=== PATIENT | male | born 1955 | race Caucasian/White ===

== ENCOUNTER 2019-09-10 09:41 | Outpatient (CLI) | payer OTHER, BC, SELFPAY ==
--- NOTE | 2019-09-10 11:00 | NEURO_ITS ---
Patient Number: [id number] Impression: # Complains of right hand numbness and weakness. # Severe right Carpal Tunnel Syndrome. # Right ulnar neuropathy around the elbow with neurogenic changes in 1st DI, APB and ADM. # F-waves are prolonged. # Clinical correlation recommended. Nerve Conduction Studies Anti Sensory Summary Table Stim Site NR Peak (ms) P-T Amp (?V) Site1 Site2 Delta-P (ms) Dist (cm) Hugo (m/s) Right Median Anti Sensory (2-3nd Digit) NO RESPONSE Wrist NR Wrist 2-3nd Digit 14.0 Wrist 8.5 16.6 Wrist 2-3nd Digit 14.0 Right Radial Anti Sensory (Base 1st Digit) Wrist 2.9 6.3 Wrist Base 1st Digit 2.9 0.0 Right Ulnar Anti Sensory (5th Digit) Wrist 4.8 27.9 Wrist 5th Digit 4.8 14.0 29 Motor Summary Table Stim Site NR Onset (ms) O-P Amp (mV) Site1 Site2 Delta-0 (ms) Dist (cm) Hugo (m/s) Right Median Motor (Abd Poll Brev) Wrist 8.0 3.4 Elbow Wrist 6.9 36.0 52 Elbow 14.9 2.8 Right Ulnar Motor (Abd Dig Minimi) Wrist 3.1 6.1 A Elbow Wrist 7.8 34.0 44 A Elbow 10.9 4.2 B Elbow Wrist 5.3 24.0 45 B Elbow 8.4 4.4 F Wave Studies NR F-Lat (ms) L-R F-Lat (ms) Right Median (Mrkrs) (Abd Poll Brev) 36.37 Right Ulnar (Mrkrs) (Abd Dig Min) 34.43 EMG Side Muscle Nerve Root Ins Act Fibs Amp Dur Recrt Comment Right 1stDorInt Ulnar C8-T1 Nml Nml Nml >12ms Reduced Right Ext Indicis Radial (Post Int) C7-8 Nml Nml Nml Nml Nml Right Ext Digitorum Radial (Post Int) C7-8 Nml Nml Nml Nml Nml Right BrachioRad Radial C5-6 Nml Nml Nml Nml Nml Right PronatorTeres Median C6-7 Nml Nml Nml Nml Nml Right Abd Poll Brev Median C8-T1 Nml Nml Nml >12ms Reduced Right ABD Dig Min Ulnar C8-T1 Nml Nml Nml >12ms Reduced Right Biceps Musculocut C5-6 Nml Nml Nml Nml Nml Right Triceps Radial C6-7-8 Nml Nml Nml Nml Nml Right Deltoid Axillary C5-6 Nml Nml Nml Nml Nml MTDD
== END 2019-09-10 09:42 | disposition home or self-care (01) ==
PROVIDERS: PCP Family Medicine Adolescent Medicine; Visit Provider Family Medicine Adolescent Medicine
DX: R20.2 Paresthesia of skin (principal); R20.0 Anesthesia of skin; G56.01 Carpal tunnel syndrome, right upper limb
CPT/HCPCS: 95886; 95909

== ENCOUNTER 2019-09-29 16:26 | Outpatient (CLI) | payer OTHER, BC, SELFPAY ==
--- NOTE | ~2019-09-29 | US_ITS ---
EXAMINATION: US venous doppler UE RT DATE: 09/29/2019 17:20 INDICATION: Right wrist lump/swelling TECHNIQUE: Grayscale images without and with compression and Doppler images of the right upper extrem ity veins were obtained. COMPARISON: None. FINDINGS: The right internal jugular vein, subclavian vein, axillary vein, brachial vein, basilic vein, cephali c vein, radial vein, and ulnar vein are patent. There is a 1.3 x 1.1 x 0.6 cm loculated anechoic flui d collection corresponding to the palpable abnormality at the radial side of the right wrist which is located along side the radial artery. No internal vascular flow within the cystic fluid collection o n color Doppler. A thin neck to the fluid collection appears to extend towards the wrist joint space. IMPRESSION: 1. Patent right upper extremity veins. No evidence of venous thrombosis. 2. Couple abnormality corresponds to a 1.3 x 1.1 x 0.6 cm likely ganglion cyst. Reviewed, dictated and finalized at location A.
== END 2019-09-29 16:27 | disposition home or self-care (01) ==
PROVIDERS: PCP Family Medicine Adolescent Medicine; Visit Provider Orthopaedic Surgery
DX: M25.531 Pain in right wrist (principal); R22.31 Localized swelling, mass and lump, right upper limb
CPT/HCPCS: 93971

== ENCOUNTER 2020-02-20 02:44 | Outpatient (CLI) | payer OTHER, BC, SELFPAY ==
[2020-02-20 23:13] LABS: SARS-CoV-2 RNA PCR Negative
== END 2020-02-20 02:45 | disposition home or self-care (01) ==
LOC: ANHCOVIDDT 02:44
PROVIDERS: PCP Family Medicine Adolescent Medicine; Visit Provider Orthopaedic Surgery
DX: Z01.812 Encounter for preprocedural laboratory examination (principal); Z20.828 Contact with and (suspected) exposure to other viral communicable diseases
CPT/HCPCS: 87635; C9803; U0003

== ENCOUNTER 2020-02-20 08:09 | Outpatient (CLI) | payer OTHER, BC, SELFPAY ==
--- NOTE | 2020-02-20 08:11 | ECG_ITS ---
Measurements Intervals [place] Rate: 66 P: 68 TX: 155 QRS: 30 QRSD: 102 T: 35 QT: 402 QTc: 423 Interpretive Statements SINUS RHYTHM POSSIBLE LEFT ATRIAL ENLARGEMENT INCOMPLETE RIGHT BUNDLE BRANCH BLOCK DELAYED PRECORDIAL R/S TRANSITION BASELINE ARTIFACT- I, III, AVL BORDERLINE ECG Electronically Signed On 02-20-2020 8:23:16 CDT by Ronaldo Bergman D.O.
== END 2020-02-20 08:10 | disposition home or self-care (01) ==
PROVIDERS: PCP Family Medicine Adolescent Medicine; Visit Provider Orthopaedic Surgery
DX: I10 Essential (primary) hypertension (principal); I45.10 Unspecified right bundle-branch block; R94.31 Abnormal electrocardiogram [ECG] [EKG]
CPT/HCPCS: 93005

== ENCOUNTER 2020-02-23 00:41 | Day surgery (SDC) | payer OTHER, BC, SELFPAY ==
[2020-02-12 10:36] VITALS: BMI 22.8
--- NOTE | 2020-02-23 11:13 | WPDANESEPPF ---
Anes - Initial Pre Proc Eval Procedure: Operation Date: 02/23/20 12:30 Proposed Procedures p Right Carpal Tunnel Release, Right Cubital Tunnel Release, Possible Ulnar Nerve Transposition - Vini Christy MD Date/Time: 02/23/20 11:13 Surgeon: Vini Christy MD Pre Op Diagnosis: Right Carpal & Cubital Tunnel Syndrome Patient Data Age: 64 Gender: M Height: 6 ft 6 in Weight: 89.81 kg Allergies Allergy/AdvReac Type Severity Reaction Status Date / Time No Known Allergies Allergy Verified 02/12/20 10:30 Home Medications Medication Instructions Recorded Confirmed Type atorvastatin 10 mg tablet 10 mg PO DAILY 09/24/19 02/12/20 History lisinopril 20 mg tablet 20 mg PO DAILY 09/24/19 02/12/20 History coQ10 (ubiquinol) 100 mg PO DAILY 02/12/20 02/12/20 History glucosamine sulfate [Glucosamine] 500 mg PO DAILY 02/12/20 02/12/20 History multivitamin 1 cap PO DAILY 02/12/20 02/12/20 History plant stanol aga [Cholest Off] 450 mg PO DAILY 02/12/20 02/12/20 History turmeric 400 mg PO DAILY 02/12/20 02/12/20 History Patient hx anesthesia problems: none Family hx anesthesia problems: none PMFSH Past Medical History Medical History Hyperlipidemia Hypertension Tobacco abuse Surgical History Surgical History H/O foot surgery hammer toe History of bilateral knee replacement (~2015) Dr nasreen cha Family History Family History Mother Family history of Alzheimer's disease Father Afib Social History Social History Smoking packs per day: 1 Smoking cigarettes per day: 20.0 Years smoked: 30 Smoking pack-years: 30.00 Smoking status: Former smoker Tobacco type: cigarettes and e-cigarettes/vaping Second hand tobacco smoke exposure: No Smoking end date: 05/14/11 Additional smoking assessment comments: seldomly vape: No nicotine Alcohol intake: current Drinks per week: 42 Alcohol use details: 6 beers per day Substance use: never Substance use type: does not use Last use: 2011 Living arrangements: with family Additional occupation/education comments: [employer] Gender identity (if verbalized by the patient): Male Spiritual care concerns: No Anes - Eval Final PreProcedure Day of Procedure 02/23/20 11:13 Patient weight: normal Heart: regular rate and rhythm Lungs: decreased breath sounds Airway: Mallampati scale class II Neurological: alert and oriented Last oral intake: >/= 8 hours ASA classification: III Emergent: no Anesthetic plan: proceed Anesthesia type and monitoring: general LMA and standard monitoring Informed Consent: The patient's anesthetic plan and its attendant risks and benefits were discussed with the patient/family/POA. Questions were solicited and answers provided to the satisfaction of the patient/family/POA.
[2020-02-23] MEDS: LACTATED RINGERS 1,000 ML 30 ML IV CONT ×2 (11:20→13:28)
[2020-02-23] MEDS: KETOROLAC 15 MG/ML VIAL (*BKC) IV PUSH (11:26)
[2020-02-23] MEDS: ACETAMINOPHEN 500 MG TABLET 1000 MG PO (11:26)
[2020-02-23 11:34] VITALS: BP 154/85; PULSE 98; RESP 18; TEMP 36.8; O2SAT 98
--- NOTE | 2020-02-23 11:57 | WPDHPUPDATE1 ---
History and Physical Update Update Date/Time: 02/23/20 11:57 History and Physical has been reviewed, including an updated exam of the patient. There are NO changes in the patient's condition. Risks, benefits, and alternatives have been discussed and questions answered. Patient agrees to proceed with procedure.
[2020-02-23] MEDS: ceFAZolin 2 GM/D5W 50 ML 2 GM/50 ML BAG IVPB (12:28)
[2020-02-23] MEDS: LIDO 1%/EPINEPHRINE 1:100,000 20 ML VIAL INFILTRATE (12:58)
[2020-02-23 13:28] VITALS: BP 139/87; PULSE 62; RESP 12; TEMP 36; O2SAT 100
--- NOTE | 2020-02-23 13:40 | P.OP_ITS ---
Procedure Note - Detailed Date of procedure: 02/23/20 Pre-op diagnosis: Right Carpal & Cubital Tunnel Syndrome Post-op diagnosis: same Procedure performed: Open right cubital and carpal tunnel releases Description of procedure: The patient was identified and proper side identified. After being taken to the operating room and transferred to the OR table, he underwent anesthetic induction and intubation. A nonsterile tourniquet was placed high on the right upper extremity, which was prepped and draped in the usual sterile fashion. The extremity was exsanguinated and tourniquet inflated to 250 mmHg remaining up for approximately 20 minutes. The elbow was approached first. A curvilinear incision was made over the cubital tunnel retinaculum. Subcutaneous tissue was bluntly dissected protecting neurovascular structures. The retinaculum was identified and then transected in line with the incision releasing the ulnar nerve which was being compressed by this structure. After this was carried out, the elbow was taken through range of motion and there was no tendency for the ulnar nerve to subluxate out of the groove. The wound was irrigated with sterile and then the subcutaneous tissue adjacent to the incision was infiltrated with several cc of 0.25% Marcaine and epinephrine solution. The skin edges at the elbow were reapproximated with three 0 V lock and tissue adhesive for the skin. Attention was then turned to the carpal canal. The subcutaneous tissue in the area of the incision was infiltrated with several cc of 0.25% Marcaine and epinephrine solution. A longitudinal incision was over the ulnar aspect of the transverse carpal ligament. Subcutaneous tissue was bluntly dissected down to the ligament, which was identified and then transected longitudinally in line with the incision releasing the contents of the carpal canal. The tourniquet was released. Hemostasis was carried out with bipolar electrocautery. The median nerve had appropriate blush with reperfusion. The wound was irrigated with sterile saline solution. Skin edges were reapproximated with four 0 nylon suture and a sterile dressing was applied.. He tolerated the procedure well, was awakened, extubated and taken to recovery area in stable condition. There were no known intraoperative complications. Estimated blood loss was negligible. [facility] Surgeon: Vini Christy MD Tank Processor: Lavonne Matta Estimated blood loss (mL): 5 Tourniquet time (min): 20 Drains: No Pathology: none sent Complications: No immediate complications Condition: stable Disposition: PACU
[2020-02-23 13:45] VITALS: BP 139/85; PULSE 64; RESP 14; O2SAT 100
[2020-02-23 13:59] VITALS: BP 140/83; PULSE 64; RESP 14; O2SAT 99
--- NOTE | 2020-02-23 14:09 | SUR.PHASEI ---
PT AWAKE AND ALERT. DENIES PAIN. STATES READY TO GO HOME. MEETS DISCHARGE CRITERIA.
[2020-02-23 14:10] VITALS: BP 166/96; PULSE 62; RESP 14
[2020-02-23 14:40] VITALS: BP 165/88; PULSE 67; RESP 14
== END 2020-02-23 15:04 | disposition home or self-care (01) ==
PROVIDERS: PCP Family Medicine Adolescent Medicine; Visit Provider Orthopaedic Surgery
PROC: (CPT 64721; principal; 2020-02-23 12:30)
DX: G56.01 Carpal tunnel syndrome, right upper limb (principal); G56.21 Lesion of ulnar nerve, right upper limb; I10 Essential (primary) hypertension; E78.5 Hyperlipidemia, unspecified; Z87.891 Personal history of nicotine dependence
CPT/HCPCS: 64721; 64718; A4565; A9270; J0690; J1100; J1885; J2250; J2405; J2704; J3010; J7120

== ENCOUNTER → 2021-03-02 08:54 | Outpatient (CLI) | payer OTHER, BC, SELFPAY ==
--- NOTE | ~2021-03-02 | XR_ITS ---
EXAMINATION: XR hand LT min 3V, XR hand RT min 3V DATE: 03/02/2021 09:13 INDICATION: Bilateral hand pain TECHNIQUE: 1. Posteroanterior, oblique and lateral views of the left hand were obtained. 2. Posteroanterior, oblique and lateral views of the right hand were obtained. COMPARISON: None. FINDINGS: No fracture at either hand or wrist. Relatively symmetric pattern of prominent chondrocalcinosis at b ilateral wrist joints, and the carpi and at the bilateral third metacarpophalangeal joints. There is widening of the right scapholunate interval with severe osteoarthritis at the radioscaphoid articulat ion and at the lunocapitate articulation of the midcarpal joint consistent with likely scapholunate l igament tear and secondary scapholunate advanced collapse (SLAC) wrist. Although the right scapholuna te interval is not widened there does appear to be similar moderate to severe osteoarthritis at the l unocapitate articulation and could not exclude less advanced SLAC wrist. Severe osteoarthritis at the left first carpometacarpal joint. Moderate osteoarthritis at the bilateral third metacarpophalangeal joints. Mild osteoarthritis at the right distal radioulnar, bilateral triscaphe and first interphala ngeal joints. Minimal osteoarthritis at a few additional distal interphalangeal joints. IMPRESSION: 1. Relatively symmetric scattered chondrocalcinosis at the bilateral hands and wrists which along wit h the atypical predominance of moderate osteoarthritis at the bilateral third metacarpophalangeal cherelle nts suggests possibility of calcium pyrophosphate deposition (CPPD) disease. 2. 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 Similar less advanced disease suggests at the contralateral left wrist and carpus. Reviewed, dictated and finalized at location A. IMPRESSION: 1. Relatively symmetric scattered chondrocalcinosis at the bilateral hands and wrists which along with the atypical predominance of moderate osteoarthritis at the bilateral third metacarpophalangeal joints suggests possibility of calcium pyrophosphate deposition (CPPD) disease. 2. Constellation of findings at the right wrist and carpus consistent with scap holunate ligament insufficiency and secondary scapholunate advanced collapse (S LAC) wrist with severe radioscaphoid and lunocapitate osteoarthritis. Similar l ess advanced disease suggests at the contralateral left wrist and carpus.
== END ==
PROVIDERS: Visit Provider Orthopaedic Surgery
DX: M79.641 Pain in right hand (principal); M79.642 Pain in left hand; M11.242 Other chondrocalcinosis, left hand; M11.241 Other chondrocalcinosis, right hand; M19.042 Primary osteoarthritis, left hand; M19.041 Primary osteoarthritis, right hand
CPT/HCPCS: 73130

== ENCOUNTER 2021-07-29 00:09 | Day surgery (SDC) | payer OTHER, BC, SELFPAY ==
[2021-07-22 09:29] VITALS: BMI 24.0
[2021-07-29] MEDS: LACTATED RINGERS 1,000 ML 150 ML IV CONT (06:57)
[2021-07-29 06:58] VITALS: BP 149/89; PULSE 74; RESP 16; TEMP 36.3; O2SAT 98
--- NOTE | 2021-07-29 07:11 | P.PNAN_ITS ---
Anes - Eval Pre Procedure Procedure: Operation Date: 07/29/21 07:30 Proposed Procedures p Screening Colonoscopy - Tenzin Boswell MD Date/Time: 07/29/21 07:11 Pre Op Diagnosis: family hx of colon polyps Patient Data Age: 65 Gender: M Height: 1.94 m Weight: 87.9 kg Last Vital Signs Temp 97.4 F L 07/29/21 06:58 Pulse 74 07/29/21 06:58 Resp 16 07/29/21 06:58 BP 149/89 H 07/29/21 06:58 Pulse Ox 98 07/29/21 06:58 Allergies Allergy/AdvReac Type Severity Reaction Status Date / Time No Known Allergies Allergy Verified 07/29/21 06:20 Home Medications Medication Instructions Recorded Confirmed Type atorvastatin 10 mg tablet 10 mg PO DAILY 09/24/19 07/29/21 History Cholest Off 450 mg PO DAILY 02/12/20 07/22/21 History coQ10 (ubiquinol) 100 mg PO DAILY 02/12/20 07/22/21 History multivitamin 1 cap PO DAILY 02/12/20 07/22/21 History turmeric 400 mg PO DAILY 02/12/20 07/22/21 History finasteride 5 mg tablet 5 mg PO DAILY #90 tablet 06/20/21 07/22/21 Rx lisinopril 20 2 tablet PO DAILY #180 tablet 06/20/21 07/22/21 Rx mg-hydrochlorothiazide 12.5 mg tablet glucosamine HCl 1,500 mg PO DAILY 07/22/21 07/22/21 History Patient hx anesthesia problems: none Family hx anesthesia problems: none Results Review: All pre-operative results and documents have been reviewed as part of the pre-operative evaluation. [facility] Past Medical History Medical History Hyperlipidemia Hypertension Tobacco abuse Surgical History Surgical History Carpal tunnel syndrome of right wrist decompression February 2020 Cubital tunnel syndrome on right decompression February 2020 H/O foot surgery hammer toe History of bilateral knee replacement (~2015) Dr nasrene cha Family History Family History Mother Family history of Alzheimer's disease Father Afib Social History Social History Smoking packs per day: 1 Smoking cigarettes per day: 20.0 Years smoked: 30 Smoking pack-years: 30.00 Smoking status: Former smoker Tobacco type: cigarettes Second hand tobacco smoke exposure: No Smoking end date: 05/14/11 Additional smoking assessment comments: seldomly vape: No nicotine Alcohol intake: current Drinks per week: 42 Alcohol use details: BEERS Substance use: never Substance use type: marijuana Other substance usage details: OCC. Last use: 2011 Living arrangements: with family Additional occupation/education comments: [employer] Gender identity (if verbalized by the patient): Male Spiritual care concerns: No Exam Day of Procedure 07/29/21 07:11 Patient weight: normal Heart: regular rate and rhythm Lungs: clear to auscultation Airway: Mallampati scale Neurological: alert and oriented Other findings: 6 beers/day;marijuana occas
--- NOTE | 2021-07-29 07:13 | WPDANESEFPP ---
Anes - Eval Final PreProcedure Day of Procedure 07/29/21 07:13 Patient weight: normal Heart: regular rate and rhythm Lungs: clear to auscultation Airway: Mallampati scale class 1 Neurological: alert and oriented Last oral intake: 6 hours (mag citrate) ASA classification: III Emergent: no Anesthetic plan: proceed Anesthesia type and monitoring: general and standard monitoring Results Review: All pre-operative results and documents have been reviewed as part of the pre-operative evaluation. Informed Consent: The patient's anesthetic plan and its attendant risks and benefits were discussed with the patient/family/POA. Questions were solicited and answers provided to the satisfaction of the patient/family/POA.
--- NOTE | 2021-07-29 07:18 | WPDANESEFPP ---
Anes - Eval Final PreProcedure Day of Procedure 07/29/21 07:18 Patient weight: normal Heart: regular rate and rhythm Lungs: clear to auscultation Airway: Mallampati scale class 1 Neurological: alert and oriented Last oral intake: >/= 8 hours ASA classification: III Emergent: no Anesthetic plan: proceed Anesthesia type and monitoring: general GIVS and standard monitoring Results Review: All pre-operative results and documents have been reviewed as part of the pre-operative evaluation. Informed Consent: The patient's anesthetic plan and its attendant risks and benefits were discussed with the patient/family/POA. Questions were solicited and answers provided to the satisfaction of the patient/family/POA.
--- NOTE | 2021-07-29 07:48 | WPDGICN ---
Assessment and Plan Assessment and plan (1) Family history of colonic polyps: Code(s): Z83.71 - Family history of colonic polyps Status: Acute Assessment and Plan: Patient's father had colon polyps. For this reason screening colonoscopy has been advised 5-7 year intervals. GI Consult Note Consult date/time: 07/29/21 07:48 HPI: Oli Sellers is a 65 year old male Presents for screening colonoscopy. Patient's current weight appetite and bowel movements are normal. He denies abdominal pain. He has had no bleeding. Patient's last colonoscopy 2013 was unremarkable. Family history is significant is father had colon polyps. Patient presents today for neoplasia screening. Review of Systems Review of Systems: All systems reviewed & are unremarkable except as noted in HPI and below PMFSH Past Medical History Medical History Hyperlipidemia Hypertension Tobacco abuse Surgical History Surgical History Carpal tunnel syndrome of right wrist decompression February 2020 Cubital tunnel syndrome on right decompression February 2020 H/O foot surgery hammer toe History of bilateral knee replacement (~2015) Dr nasreen cha Family History Family History Mother Family history of Alzheimer's disease Father Afib Social History Social History Smoking packs per day: 1 Smoking cigarettes per day: 20.0 Years smoked: 30 Smoking pack-years: 30.00 Smoking status: Former smoker Tobacco type: cigarettes Second hand tobacco smoke exposure: No Smoking end date: 05/14/11 Additional smoking assessment comments: seldomly vape: No nicotine Alcohol intake: current Drinks per week: 42 Alcohol use details: BEERS Substance use: never Substance use type: marijuana Other substance usage details: OCC. Last use: 2011 Living arrangements: with family Additional occupation/education comments: [employer] Gender identity (if verbalized by the patient): Male Spiritual care concerns: No Meds Home Medications and Allergies Home Medications Medication Instructions Recorded Confirmed Type atorvastatin 10 mg tablet 10 mg PO DAILY 09/24/19 07/29/21 History Cholest Off 450 mg PO DAILY 02/12/20 07/22/21 History coQ10 (ubiquinol) 100 mg PO DAILY 02/12/20 07/22/21 History multivitamin 1 cap PO DAILY 02/12/20 07/22/21 History turmeric 400 mg PO DAILY 02/12/20 07/22/21 History finasteride 5 mg tablet 5 mg PO DAILY #90 tablet 06/20/21 07/22/21 Rx lisinopril 20 2 tablet PO DAILY #180 tablet 06/20/21 07/22/21 Rx mg-hydrochlorothiazide 12.5 mg tablet glucosamine HCl 1,500 mg PO DAILY 07/22/21 07/22/21 History Allergies Allergy/AdvReac Type Severity Reaction Status Date / Time No Known Allergies Allergy Verified 07/29/21 06:20 Vital Signs Vital Signs - 24 hr 07/29/21 06:58 Temperature 97.4 F L Pulse Rate 74 Respiratory Rate 16 Blood Pressure 149/89 H Pulse Oximetry 98 Exam Narrative: Physical exam reveals patient be alert. Vital signs stable. HEENT exam is unremarkable. Patient is anicteric. Lungs are clear to auscultation and percussion. Heart is without murmur or extra sounds. Abdominal exam bowel sounds present soft nontender with no organomegaly. Digital external rectal exam is normal.
[2021-07-29 07:49] VITALS: BP 86/53; PULSE 63; RESP 16; O2SAT 97
[2021-07-29 07:59] VITALS: BP 112/74; PULSE 62; RESP 22; O2SAT 100
[2021-07-29 08:09] VITALS: BP 127/82; PULSE 60; RESP 16; O2SAT 99
== END 2021-07-29 08:32 | disposition home or self-care (01) ==
PROVIDERS: PCP Family Medicine Adolescent Medicine; Visit Provider Internal Medicine Gastroenterology
PROC: 0DJD8ZZ Inspection of Lower Intestinal Tract, Via Natural or Artificial Opening Endoscopic (ICD-10-PCS; CPT 45378; principal; 2021-07-29 07:30)
DX: Z12.11 Encounter for screening for malignant neoplasm of colon (principal); D12.5 Benign neoplasm of sigmoid colon; Z83.71 Family history of colonic polyps; I10 Essential (primary) hypertension; E78.5 Hyperlipidemia, unspecified; F12.90 Cannabis use, unspecified, uncomplicated; Z87.891 Personal history of nicotine dependence
CPT/HCPCS: 45385; 88305; J2704; J7120

== ENCOUNTER 2021-08-31 08:36 | Outpatient (CLI) | payer BC, SELFPAY ==
--- NOTE | 2021-09-01 12:48 | WPDHOLTEREM ---
Holter/Event Monitor Holter/Event Monitor Date of procedure: 08/31/21 Holter/Event Procedure: 24 Hr Holter Monitor Indications: Palpitations Conclusion: 1. 24 hour holter monitor on 08/31/21. 2. Underlying rhythm is sinus rhythm. HR range 55-128 bpm; average HR 79 bpm. 3. There are 7 premature supraventricular complexes. No supraventricular tachycardia. 4. No premature ventricular complexes. No ventricular tachycardia. 5. No sinoatrial or atrioventricular blocks. No significant pauses greater than 2 seconds. 6. Patient reports symptoms of palpitations which demonstrate sinus rhythm, HR range 78-89 bpm.
== END 2021-08-31 08:37 | disposition home or self-care (01) ==
LOC: ANHCARD 08:39
PROVIDERS: PCP Family Medicine Adolescent Medicine; Visit Provider Family Medicine Adolescent Medicine
DX: R00.2 Palpitations (principal)
CPT/HCPCS: 93225; 93226

== ENCOUNTER 2023-07-16 20:14 | Emergency (ER) | payer MEDICARE, BC, SELFPAY ==
[2023-07-16] VITALS (10 sets, daily range): BP systolic 138–192; BP diastolic 94–119; PULSE 65–76; RESP 12–31; TEMP 36.7; O2SAT 95–100
--- NOTE | 2023-07-16 20:50 | ECG_ITS ---
Measurements Intervals [place] Rate: 63 P: 41 TX: 174 QRS: 2 QRSD: 98 T: 5 QT: 418 QTc: 430 Interpretive Statements SINUS RHYTHM POSSIBLE LEFT ATRIAL ENLARGEMENT POSSIBLE LEFT VENTRICULAR HYPERTROPHY BORDERLINE ECG COMPARED TO ECG 02/20/2020 08:42:09 NO SIGNIFICANT CHANGES Electronically Signed On 07-17-2023 6:42:17 SAP ABAP DEVELOPER by Ronaldo Bergman D.O.
[2023-07-16 21:11] LABS: Basophils Percent Auto 0.4 % (0.2-1.2); Eosinophils Absolute Auto 0.1 K/mm3 (0-0.3); Eosinophils Percent Auto 1.3 % (0-4.4); Hemoglobin 12.7 g/dL (14.0-18.0); Immature Granulocyte Absolute 0.02 K/mm3 (0.00-0.031); Immature Granulocyte Percent A 0.3 % (0-0.5); Lymphocytes Absolute Auto 1.36 K/mm3 (0.9-3.2); Lymphocytes Percent Auto 19.9 % (18.3-44.2); Mean Corpuscular HGB Conc 33.4 g/dl (32-36); Mean Corpuscular Hemoglobin 32.5 pg (26-34); Mean Corpuscular Volume 97.2 fl (80-100); Mean Platelet Volume 9.4 fl (7.4-10.4); Monocytes Percent Auto 14.1 % (2.6-8.5); Neutrophils Absolute Auto 4.4 K/mm3 (1.3-6.7); Platelet Count Result 226 k/mm3 (150-375); Red Blood Count 3.91 M/mm3 (4.6-6.20); Red Cell Distribution Width 12.3 % (11.5-14.5); White Blood Count 6.8 K/mm3 (4.5-10.0)
[2023-07-16 21:23] LABS: Alanine Aminotransferase 46 U/L (6-50); Albumin Level 4.3 g/dL (3.5-5.1); Alkaline Phosphatase 70 U/L (38-126); Anion Gap 6 mmol/L (8-16); Aspartate Amino Transferase 31 U/L (17-59); Bilirubin,Total 0.4 mg/dL (0.2-1.3); Blood Urea Nitrogen 12 mg/dL (9-20); Calcium 9.3 mg/dL (8.4-10.2); Carbon Dioxide 27 mmol/L (22-30); Chloride 98 mmol/L (98-107); Estimated CRCL calculation 128 ml/min; Estimated Glomerular Filt Rate > 60; Glucose 103 mg/dL (65-110); Potassium 3.4 mmol/L (3.4-5.0); Sodium 131 mmol/L (137-145)
[2023-07-16 21:27] LABS: Magnesium 1.7 mg/dL (1.6-2.3)
[2023-07-16] MEDS: METOPROLOL SUCCINATE EXT REL 50 MG TABCR PO (21:57)
--- NOTE | 2023-07-16 22:04 | ED.ANXIETY ---
HPI - Anxiety General Chief Complaint: Anxiety Stated Complaint: high blood pressure Time Seen by Provider: 07/16/23 20:50 Source: patient and EMS Mode of arrival: EMS Limitations: no limitations History of Present Illness HPI narrative: This is a 67 year old male that presents to the ER for hypertension. Reports he has been having trouble with palpitations. He is scheduled for a Holter Monitor to be placed this Sunday. He has had increasing stress as his if currently in the hospital. Today he again started to feel as though his heart was racing and he had some ringing in his ears. He took his blood pressure and it was elevated in the 200s systolic which prompted him to be seen. Denies chest pain, shortness of breath, lower extremity edema. Related Data Home Medications Medication Instructions Recorded Confirmed coQ10 (ubiquinol) 100 mg capsule 100 mg PO DAILY 02/12/20 07/04/23 multivitamin 1 cap PO DAILY 02/12/20 07/04/23 glucosamine HCl 1,500 mg tablet 1,500 mg PO DAILY 07/22/21 07/04/23 turmeric 400 mg capsule mg PO 05/31/23 07/04/23 Allergies Allergy/AdvReac Type Severity Reaction Status Date / Time No Known Allergies Allergy Verified 07/04/23 09:45 Review of Systems Review of Systems: CONSTITUTIONAL: Denies fever CARDIOVASCULAR: Reports palpitations. Denies chest pain, or edema. RESPIRATORY: Denies dyspnea. GASTROINTESTINAL: Denies vomiting All systems reviewed & are unremarkable except as noted in HPI and below PMFSH Past Medical History Medical History (Updated 07/16/23 @ 23:27 by Emily Egan PA-C) History of pneumothorax (2007) left, spontaneous Hypertension Tobacco abuse Surgical History Surgical History (Updated 05/29/22 @ 07:12 by Venkata Howard MD) H/O foot surgery hammer toe History of bilateral knee replacement (~2015) Dr nasreen cha History of carpal tunnel surgery of left wrist History of carpal tunnel surgery of right wrist (02/2020) Cubital tunnel release also History of left inguinal hernia repair (2015) History of right inguinal hernia repair (2002) History of total knee arthroplasty (2015) bilateral Family History Family History Mother Family history of Alzheimer's disease Father Afib Social History Social History (Updated 08/15/21 @ 07:54 by Bertha Mccartney MA) Smoking packs per day: 1 Smoking cigarettes per day: 20.0 Years smoked: 30 Smoking pack-years: 30.00 Smoking status: Former smoker Tobacco type: cigarettes Second hand tobacco smoke exposure: No Smoking end date: 05/14/11 Additional smoking assessment comments: seldomly vape: No nicotine Alcohol intake: current Drinks per week: 42 Alcohol use details: BEERS Substance use: never Substance use type: other Other substance usage details: OCC. Last use: 2011 Living arrangements: with family Occupation/Education: retired Additional occupation/education comments: [employer] Gender identity (if verbalized by the patient): Male Sexual Orientation (if Verbalized by the Patient): Straight or Heterosexual Spiritual care concerns: No Agree to blood products: Yes Exam Narrative: GENERAL: Well-appearing, well-nourished, and in no acute distress. HEAD: Normocephalic, atraumatic. EYES: EOMI. NECK: Supple. No adenopathy or masses. No JVD CHEST: Clear to auscultation. No respiratory distress. No wheezes rales or rhonchi HEART: Regular rate and rhythm. No murmur heard. Normal peripheral pulses. EXTREMITIES: Normal range of motion. No edema. SKIN: Warm, dry, no rash. NEURO: No focal deficits. Alert and oriented x3. PSYCH: Normal mood and affect Course Course Emergency Course: Patient updated on his workup and agrees with plan of care Vital Signs Vital signs: Vital Signs Temperature 98.0 F 07/16/23 20:16 Pulse Rate 70 07/16/23 20:16 Respiratory Rate 19
[2023-07-16] MEDS: LORazepam (*CRX) 0.5 MG TABLET PO (22:34)
[2023-07-16] MEDS: SODIUM CHLORIDE 0.9% IV 500 ML 999 ML IV CONT (22:34)
--- NOTE | 2023-07-16 23:23 | PC.NURSE ---
care and report given to MARIAM Hewitt. all questions answered.
== END 2023-07-16 23:55 | disposition home or self-care (01) ==
PROVIDERS: Emergency Provider Physician Assistant; PCP Family Medicine Adolescent Medicine
DX: R00.2 Palpitations (principal); I10 Essential (primary) hypertension; Z96.653 Presence of artificial knee joint, bilateral; Z87.891 Personal history of nicotine dependence; R94.31 Abnormal electrocardiogram [ECG] [EKG]
CPT/HCPCS: 36415; 80053; 83735; 85025; 93005; 96360; 99283; A9270; J7040

== ENCOUNTER 2023-07-20 09:23 | Outpatient (CLI) | payer MEDICARE, BC, SELFPAY ==
--- NOTE | 2023-07-23 11:51 | WPDHOLTEREM ---
Holter/Event Monitor Holter/Event Monitor Date of procedure: 07/20/23 Holter/Event Procedure: 24 Hr Holter Monitor Indications: Palpitations Conclusion: 1. 24 hour holter monitor on 07/20/23. 2. Predominant rhythm is sinus rhythm. HR range 50-94 bpm; average HR 65 bpm. 3. There are 76 premature supraventricular complexes and 1 supraventricular couplet. There is 1 episode of atrial tachycardia at 140 bpm lasting 16 beats at 12:51. 4. There are 6 premature ventricular complexes. No ventricular tachycardia. 5. No sinoatrial or atrioventricular blocks. No significant pauses greater than 2 seconds. 6. Patient reports symptoms of palpitations which demonstrate sinus rhythm, HR range 61-66 bpm.
== END 2023-07-20 09:24 | disposition home or self-care (01) ==
LOC: ANHCARD 09:24
PROVIDERS: PCP Family Medicine Adolescent Medicine; Visit Provider Family Medicine Adolescent Medicine
DX: R00.2 Palpitations (principal)
CPT/HCPCS: 93225; 93226

== ENCOUNTER 2023-08-30 08:49 | Outpatient (CLI) | payer MEDICARE, BC, SELFPAY | END 2023-08-30 08:50 | disposition home or self-care (01) | LOC: ANHAUDIO 08:50 | PROVIDERS: PCP Family Medicine Adolescent Medicine; Visit Provider Otolaryngology | DX: H90.3 Sensorineural hearing loss, bilateral (principal); H93.19 Tinnitus, unspecified ear; G47.33 Obstructive sleep apnea (adult) (pediatric) | CPT/HCPCS: 92557; 92567 ==

== ENCOUNTER 2024-07-06 04:55 | Emergency (ER) | payer MEDICARE, OTHER, SELFPAY ==
--- NOTE | ~2024-07-06 | CT_ITS ---
EXAMINATION: CTA chest DATE: 07/06/2024 05:56 INDICATION: Chest pain. TECHNIQUE: Computed tomographic angiography (CTA) of the chest was performed without and with 100 mL Omnipaque-350 intravenous contrast. Automated exposure control and iterative reconstruction technique were employed. The dose-length product was 463.97 mGy-cm. Maximum intensity projection 3D-reconstruc tions of the aorta and other arteries were constructed by the technologist on a separate workstation. COMPARISON: Chest CT 08/15/2011 FINDINGS: There is mild scarring at the lung apices. There is mild emphysema. There is mild atelectas is bilaterally. There is a 4 mm nodule in right middle lobe, likely benign. No pleural effusion. The heart size is normal. There are coronary artery calcifications. No pericardial effusion. There is no pulmonary embolus. There is mild aortic atherosclerosis. No aneurysm or dissection. There is mild hank ateral gynecomastia. There is severe thoracic spondylosis. There is mild chronic anterior wedging of multiple vertebral bodies. IMPRESSION: 1. Aortic atherosclerosis. No aneurysm or dissection. 2. No pulmonary embolus. 3. Mild emphysema. Reviewed, dictated and finalized at location A. MOLDER
[2024-07-06 04:54] VITALS: BP 173/95; PULSE 77; RESP 13; TEMP 36.6; O2SAT 100
--- NOTE | 2024-07-06 04:58 | ECG_ITS ---
Test Date: 2024-07-06 05:01:35 Measurements Intervals [place] Rate: 67 P: 56 GA: 173 QRS: 7 QRSD: 97 T: 16 QT: 415 QTc: 439 Interpretive Statements SINUS RHYTHM POSSIBLE LEFT ATRIAL ENLARGEMENT BASELINE ARTIFACT- I, II, III, AVR, AVL BORDERLINE ECG No previous ECG available for comparison Electronically Signed On 07-06-2024 07:08:12 TRIP FOLLOWER by Ronaldo Bergman D.O.
[2024-07-06 05:01] VITALS: PULSE 80
[2024-07-06 05:09] LABS: Basophils Percent Auto 0.5 % (0.2-1.2); Eosinophils Absolute Auto 0.3 K/mm3 (0-0.3); Eosinophils Percent Auto 4.2 % (0-4.4); Hematocrit 36.1 % (42.0-52.0); Hemoglobin 12.6 g/dL (14.0-18.0); Immature Granulocyte Absolute 0.02 K/mm3 (0.00-0.031); Immature Granulocyte Percent A 0.3 % (0-0.5); Lymphocytes Absolute Auto 2.25 K/mm3 (0.9-3.2); Lymphocytes Percent Auto 34.8 % (18.3-44.2); Mean Corpuscular HGB Conc 34.9 g/dl (32-36); Mean Corpuscular Hemoglobin 33.7 pg (26-34); Mean Corpuscular Volume 96.5 fl (80-100); Mean Platelet Volume 9.9 fl (7.4-10.4); Monocytes Percent Auto 15.6 % (2.6-8.5); Neutrophils Absolute Auto 2.9 K/mm3 (1.3-6.7); Neutrophils Percent Auto 44.6 % (45.5-73.1); Platelet Count Result 229 k/mm3 (150-375); Red Blood Count 3.74 M/mm3 (4.6-6.20); Red Cell Distribution Width 12.5 % (11.5-14.5); White Blood Count 6.5 K/mm3 (4.5-10.0)
[2024-07-06 05:24] LABS: INR 0.9
[2024-07-06 05:25] LABS: Partial Thromboplastin Time 28.5 Seconds (22.3-36.8)
--- OUTSIDE RECORDS SUMMARY | 2024-07-06 05:27 | XMS_ITS | Clinical Summary ---
Author Organization [facility] Address [address] [place] [address] Care Team Providers Care Curriculum Director Name Role Phone Unavailable Primary Care Provider Unavailabl e Social History Tobacco Use Types Packs/Day Years Used Date Smoking Tobacco: Never Assessed Sex and Gender Information Value Date Recorded Sex Assigned at Not on file Legal Sex Male 4:31 PM CDT Gender Identity Not on file Sexual Orientation Not on file Plan of Treatment Health Maintenance Due Date Last Done Comments Colorectal Cancer Screening Colonoscopy (10 Years) 1955 Hepatitis C 11/26/1975 DTaP, Tdap and Td Vaccines ( 1 - Tdap) 1976 Zoster Vaccines (1 of 2) 11/26/2007 Pneumococcal Vaccine: 65+ Ye ars (1 of 1 - PCV) 2022 COVID-19 Vaccine ( - 2023-2 5 season) 2024 Influenza Adult (#1) 2024 RSV Immunization or 60+ Years (1 - 1-dose 75+ series) 2032 Meningococcal B Vaccine Aged Out No l onger eligible based on patient's age to complete this topic Meningococcal Vaccine Aged Out No everett destinee eligible based on patient's age to complete this topic RSV Immunizations Under 20 Months Aged Out No longer eligible based on patient's age to complete this topic
--- OUTSIDE RECORDS SUMMARY | 2024-07-06 05:27 | XMS_ITS | Continuity of Care Document ---
Author Organization [facility] Address [address] [place] [address] Phone Care Team Providers Care Electrician Outside Name Role Phone Toby Moore Unavailable Unavailab [...] Office/outpat ient visit,est, mod [facility], [address] [place], [place] [address]uite [facility], [place], [place], [id number], [place] tel:[phone] [facility] Right knee. (chief complaint) Pain in right kneePresence of artificial knee joint, bilateralLipoma [address], [address], [place], [place], [id number] , [place]. tel:[phone] Family History Family Member Type Diagnosis Age At Onset No Information Payers Payer name Insurance type Covered constitution party ID Authoriza titiff(s) [facility] [id number] Toxey Ikro Jin kumar [facility] [id number] Social History Type Description Quantity Date Captured [...] they will always appear different than a nikolai knee, and that their appearance is normal. The patient demonstrates appropriate understanding of the diagnosis and the plan of care at this time, and we will see him back as needed Patient Care Teams Name Effective Dates (start - stop) Status Members No Information
--- OUTSIDE RECORDS SUMMARY | 2024-07-06 05:27 | XMS_ITS | Clinical Summary ---
Author Organization [facility] Address [address] [place] [id number] Care Team Providers Care Facilities Clerk Name Role Phone Venkata Howard MD Primary Care Prov ider Allergies No known active allergies Medications atorvastatin (LIPITOR) 10 mg tablet 1 Active lisinopril-hydr oCHLOROthiazide (ZESTORETIC) 20-12.5 mg per tablet 1 Active finasteride (PROSCAR) 5 mg tablet [address] (PROTONIX) 40 mg EC tablet Take 40 mg by mouth 2 (two) times a day 1 Active diclofenac sodium (VOLTAREN) 1 % gel APPLY TOPICALLY TO THE AFFECTED AREA ON THE LEFT HAND 3 TO 4 TIMES DAILY. 2 Active metoprolol XL (TOPROL-XL) 50 mg extended release tablet Take 50 mg by mouth daily 2 Active Active Problems Problem Noted Date Diagnosed Date Knee pain 04/03/2014 Surgical History Surgery Date Site/Laterality Comments CARPAL TUNNEL RELEASE KNEE SURGERY Medical History Medical History Date Comments Arthritis Hypertension Family History Medical History Relation Name Comments Hypertension Father Relation Name Status Comments Father Social History Tobacco Use Types Packs/Day Years Used Date Smoking Tobacco: Never Personal Safety Answer Date Recorded Getting School Help Needed Not on file 07/06 Sex and Gender Information Value Date Recorded Sex Assigned at Not on file Legal Sex Male 7:37 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 Gender Identity Not on file Sexual Orientation Not on file Obstetrics History Last Filed Vital Signs Vital Sign Reading Time Taken Comments Blood Pressure 135/94 08/18/2015 9:13 AM CDT Pulse 90 08/16/2015 8:56 AM CDT Temperature - - Respiratory Rate - - Oxygen Saturation - - Inhaled Oxygen Concentration - - Weight 90.7 kg (200 lb) 03/29/2021 8:06 AM PRESSURE TESTING TECHNICIAN Height 193 cm (6' 4 ) 03/29/2021 8:06 AM PRESSURE TESTING TECHNICIAN Body Mass Index 24.34 03/29/2021 8:06 AM PRESSURE TESTING TECHNICIAN Plan of Treatment Health Maintenance Due Date Last Done Comments Colon Cancer Screening-Colonoscopy 1957 Depression Screening 1957 Fall Risk Assessment 1955 Hepatitis C Screening 1955 Prostate Cancer Screening-PSA 1957 DTaP/Tdap/Td Vaccine (1 - Tdap) 1968 Hepatitis B Screening 11/26/1975 Pneumococcal vaccine 65+ (1 of 1 - PCV) 11/26/2007 Zoster Vaccine (1 of 2) 11/26/2007 Abdominal Aortic Aneurysm (AAA) Screen 2022 Well Visit 65+ 2022 Covid-19 Vaccine (2 - season) 01/13/202411/2020 Influenza Vaccine (#1) 2024 Insurance [facility] [employer] Care Teams Facilities Clerk Relationship Specialty Start Date End Date Venkata Howard MD [address] [place] [address] PCP - General Family Medicine 03/07/21
--- OUTSIDE RECORDS SUMMARY | 2024-07-06 05:27 | XMS_ITS | Referral Summary ---
Author Organization [facility] Address [address] [place] [phone] Care Team Providers Care Electrician Substation Supervisor Name Role Phone Venkata Howard MD Primary [...] Noted Date Diagnosed Date Knee pain 04/03/2014 Social History Tobacco Use Types Packs/Day Years Used Date Smoking Tobacco: Never Personal Safety Answer Date Recorded Getting School Help Needed Not on file 07/06 Sex and Gender Information Value Date Recorded Sex Assigned at Not on file Legal Sex Male 7:37 PM ELECTRIC ARC FURNACE OPERATOR Gender Identity Not on file Sexual Orientation Not on file Last Filed Vital Signs Vital Sign Reading Time Taken Comments Blood Pressure 135/94 08/18/2015 9:13 AM CDT Pulse 90 08/16/2015 8:56 AM CDT Temperature - - Respiratory Rate - - Oxygen Saturation - - Inhaled Oxygen Concentration - - Weight 90.7 kg (200 lb) 03/29/2021 8:06 AM ELECTRIC ARC FURNACE OPERATOR Height 193 cm (6' 4 ) 03/29/2021 8:06 AM ELECTRIC ARC FURNACE OPERATOR Body Mass Index 24.34 03/29/2021 8:06 AM ELECTRIC ARC FURNACE OPERATOR Plan of Treatment Not on file Insurance [facility] [employer] Care Teams Electrician Substation Supervisor Relationship Specialty Start Date End Date Venkata Howard MD [address] [place] [address] PCP - General Family Medicine 03/07/21
[2024-07-06 05:32] LABS: Alanine Aminotransferase 43 U/L (6-50); Albumin Level 4.4 g/dL (3.5-5.1); Alkaline Phosphatase 69 U/L (38-126); Anion Gap 12 mmol/L (4-12); Aspartate Amino Transferase 29 U/L (17-59); Bilirubin,Total 0.5 mg/dL (0.2-1.3); Blood Urea Nitrogen 18 mg/dL (9-20); Calcium 9.4 mg/dL (8.4-10.2); Carbon Dioxide 24 mmol/L (22-30); Chloride 95 mmol/L (98-107); Estimated CRCL calculation 108 ml/min; Estimated Glomerular Filt Rate > 60; Glucose 93 mg/dL (65-110); Lipase 62 U/L (23-300); Potassium 3.9 mmol/L (3.4-5.0); Sodium 131 mmol/L (137-145)
--- NOTE | 2024-07-06 05:36 | ED_ITS ---
HPI - Chest Pain General Chief Complaint: Chest Pain Stated Complaint: chest pain Time Seen by Provider: 07/06/24 04:58 History of Present Illness HPI narrative: Patient is a 68-year-old male who presents to the emergency department this evening complaining of chest pain that has been ongoing on and off for the past week. Patient states that the pain has been intermittent in and admits that sometimes he noticed that it is worse with certain movements but has not noticed any major aggravating or alleviating factors. Patient states that sometimes his chest pain does radiate to his back. Denies any history of coronary artery disease. Patient states that he does take medications for cholesterol and hypertension. Patient states that the pain today was mild, rating it a 4/10. Currently he is denying any chest pain stating that he has subsided. Patient admits to history of acid reflux but states that he did not take any medications for it. He denies any recent illness, any fevers or chills, nausea vomiting or diarrhea and any abdominal pain. Also denies any shortness of breath. No additional symptoms or concerns at this time. EMS did administer a full dose oral chewable aspirin prior to arrival. Related Data Home Medications ?Medication ?Instructions ?Recorded ?Confirmed ?Last Taken ?Type multivitamin 1 cap PO DAILY 02/12/20 06/19/24 Unknown History turmeric 400 mg capsule mg PO 05/31/23 06/19/24 Unknown History lisinopril 20 1 tablet PO BID 06/19/24 06/19/24 Unknown History mg-hydrochlorothiazide 12.5 mg tablet Allergies Allergy/AdvReac Type Severity Reaction Status Date / Time No Known Allergies Allergy Verified 07/06/24 06:08 Review of Systems 2 Review of Systems: All systems are reviewed and are negative unless stated otherwise in the HPI. [facility] Past Medical History Medical History History of pneumothorax (2007) left, spontaneous Tobacco abuse Hypertension Surgical History Surgical History History of carpal tunnel surgery of left wrist History of right inguinal hernia repair (2002) History of total knee arthroplasty (2015) bilateral History of left inguinal hernia repair (2015) History of carpal tunnel surgery of right wrist (02/2020) Cubital tunnel release also H/O foot surgery hammer toe History of bilateral knee replacement (~2015) Dr nasreen cha Family History Family History Mother Family history of Alzheimer's disease Father Afib Social History Social History Smoking packs per day: 1 Smoking cigarettes per day: 20.0 Years smoked: 30 Smoking pack-years: 30.00 Smoking status: Former smoker Tobacco type: cigarettes Second hand tobacco smoke exposure: No Smoking end date: 05/14/11 Additional smoking assessment comments: seldomly vape: No nicotine Alcohol intake: current Drinks per week: 42 Alcohol use details: BEERS Substance use: never Substance use type: other Other substance usage details: OCC. Last use: 2011 Living arrangements: with family Occupation/Education: retired Additional occupation/education comments: [employer] Gender identity (if verbalized by the patient): Male Sexual Orientation (if Verbalized by the Patient): Straight or Heterosexual Spiritual care concerns: No Agree to blood products: Yes Exam 2 Narrative: General: Alert, awake, afebrile, in no acute distress. HEENT: PERRL, no rhinorrhea, no post nasal drip, oropharynx clear. Neck: Trachea midline, no JVD, no lymphadenopathy. Cardiovascular: Regular rate and rhythm, no murmurs, rubs or gallops, no peripheral edema. Respiratory: Clear to auscultation bilaterally, no tachypnea, no wheezing, no rhonchi, no rubs, no respiratory distress. Abdomen: Soft, nontender, nondistended, no rebound, no guarding, no peritoneal signs. Musculoskeletal: No joint swelling or deformity, normal muscle tone. Skin: No rashes or petechia, no signs of infection. Psychiatric: Alert and oriented, normal behavior and judgment for situation. Neurological: Alert and oriented to person, place, and time. Follows all commands. No focal deficits, speech is clear and fluent. Course Vital Signs Vital signs: Vital Signs Temperature 97.8 F 07/06/24 04:54 Pulse Rate 77 07/06/24 04:54 Respiratory Rate 13 07/06/24 04:54 Blood Pressure 173/95 H 07/06/24 04:54 Pulse Oximetry 100 07/06/24 04:54 Oxygen Delivery Room Air 07/06/24 04:54 Temperature 97.8 F 07/06/24 04:54 Pulse Rate 80 07/06/24 05:01 Respiratory Rate 13 07/06/24 04:54 Blood Pressure 173/95 H 07/06/24 04:54 Pulse Oximetry 100 07/06/24 04:54 Oxygen Delivery Room Air 07/06/24 05:01 MDM - Chest Pain MDM Narrative Medical decision making narrative: The patient was evaluated by myself in the emergency department. History is obtained from patient who is an independent historian and physical exam was performed. External medical records were reviewed at this time. IV was established and pertinent tests were ordered. Patient's blood pressure was noted to be elevated at 173/95 mmHg. Patient did admit that he did not take his blood pressure medications this morning. Patient was administered 20 mg of IV Pepcid at this time. EKG was obtained which revealed sinus rhythm at a rate of 67 beats per minute. No ST changes, T wave inversions or evidence of acute ischemia. EKG was independently interpreted by me and is currently pending official cardiology read. Laboratory results obtained revealing no acute process. Troponin negative. Imaging studies obtained included CTA chest with IV contrast which was independently interpreted by me revealing: IMPRESSION: 1. Aortic atherosclerosis. No aneurysm or dissection. 2. No pulmonary embolus. 3. Mild emphysema. Differential diagnosis considerations include coronary artery disease, aortic dissection, GERD, pancreatitis, infectious process such as pneumonia, acute viral syndrome. Comorbidities impacting this visit include history of hypertension and hyperlipidemia. I have evaluated and discussed social determinants of health with the patient that could potentially impact subsequent diagnosis and treatment plans. On repeat assessment of the patient, reevaluation revealed that the patient is doing well and is in no acute distress. Patient symptoms have improved since he arrived to our emergency department. Repeat vital signs were all reviewed and noted to be stable with repeat blood pressure of 157/86 mmHg.. Differential diagnosis and treatment plan were discussed with the patient at bedside. Patient agrees with discussion and after shared medical decision making agrees with discharge. All questions were answered to the patient's satisfaction. Patient will follow up with Cardiology in 3-5 days. Patient was provided with strict return precautions and instructed to return to the emergency department if any new or worsening symptoms develop. The patient was discharged in stable condition. Lab Data 07/06/24 05:00 07/06/24 05:00 Labs: Lab Results 07/06/24 Range/Units 05:00 WBC 6.5 (4.5-10.0) K/mm3 RBC 3.74 L (4.6-6.20) M/mm3 Hgb 12.6 L (14.0-18.0) g/dL Hct 36.1 L (42.0-52.0) % MCV 96.5 (80-100) fl MCH 33.7 (26-34) pg MCHC 34.9 (32-36) g/dl RDW 12.5 (11.5-14.5) % Plt Count 229 (150-375) k/mm3 MPV 9.9 (7.4-10.4) fl Immature Gran % (Auto) 0.3 (0-0.5) % Neut % (Auto) 44.6 L (45.5-73.1) % Lymph % (Auto) 34.8 (18.3-44.2) % Mcduffie % (Auto) 15.6 H (2.6-8.5) % Eos % (Auto) 4.2 (0-4.4) % Baso % (Auto) 0.5 (0.2-1.2) % Lymph # (Auto) 2.25 (0.9-3.2) K/mm3 Mcduffie # (Auto) 1.0 H (0.1-0.6) K/mm3 Eos # (Auto) 0.3 (0-0.3) K/mm3 Baso # (Auto) 0.0 (0.0-0.1) K/mm3 Abs Immat Gran (auto) 0.02 (0.00-0.031) K/mm3 Absolute Neuts (auto) 2.9 (1.3-6.7) K/mm3 Absolute Nucleated RBC 0.000 (0.0-0.012) K/mm3 Nucleated RBC % 0.0 (0.0-0.2) % PT 12.0 (11.1-14.7) Seconds INR 0.9 APTT 28.5 (22.3-36.8) Seconds Sodium 131 L (137-145) mmol/L Potassium 3.9 (3.4-5.0) mmol/L Chloride 95 L (98-107) mmol/L Carbon Dioxide 24 (22-30) mmol/L Anion Gap 12 (4-12) mmol/L BUN 18 (9-20) mg/dL Creatinine 0.71 (0.7-1.3) mg/dL Estim Creat Clear Calc 108 ml/min Estimated GFR > 60 (59 - ) Glucose 93 (65-110) mg/dL Calcium 9.4 (8.4-10.2) mg/dL Magnesium 1.6 (1.6-2.3) mg/dL Total Bilirubin 0.5 (0.2-1.3) mg/dL AST 29 (17-59) U/L ALT 43 (6-50) U/L Alkaline Phosphatase 69 (38-126) U/L Troponin I < 0.012 (0.000-0.034) ng/mL Total Protein 7.0 (6.3-8.2) g/dL Albumin 4.4 (3.5-5.1) g/dL Lipase 62 (23-300) U/L Discharge Plan Discharge Clinical Impression: Chest pain Patient Disposition: Home, Self-Care Condition: Improved Instructions: Antibiotic Form, Chest Pain (ED) Additional Instructions: Please follow-up with the ict security specialist you provided with today for further evaluation regarding her chest pain, call on Sunday to set up a follow-up appointment to be seen within the next 3-5 days. Return to the emergency department if any new or worsening symptoms develop. Patient Language: Iranian Prescriptions: No Action multivitamin Capsule 1 cap PO DAILY turmeric 400 mg capsule PO lisinopril-hydrochlorothiazide 20-12.5 mg tablet 1 tablet PO BID celecoxib 200 mg capsule 200 mg PO DAILY Qty: 30 0RF finasteride 5 mg tablet 5 mg PO DAILY Qty: 90 2RF atorvastatin 40 mg tablet 40 mg PO DAILY Qty: 90 3RF metoprolol succinate 100 mg tablet extended release 24 hr See Rx Instructions .ROUTE .COMPLEX Qty: 90 0RF Dose Instruction: TAKE 1 TABLET BY MOUTH DAILY Rx Instructions: TAKE 1 TABLET BY MOUTH DAILY clonidine HCl 0.1 mg tablet See Rx Instructions PO DAILY Qty: 90 0RF Rx Instructions: 0.1mg tid prn systolic BP over 175 orally daily; diclofenac sodium 75 mg tablet,delayed release (DR/EC) 75 mg PO BID Qty: 180 0RF Follow-up/Referrals: Jairo Brito MD [Physician] - 3 Days Venkata Howard MD [Primary Care Provider] - Time of Disposition: 06:16
[2024-07-06 05:39] LABS: Magnesium 1.6 mg/dL (1.6-2.3)
[2024-07-06 05:42] LABS: Troponin I < 0.012 ng/mL (0.000-0.034)
[2024-07-06] MEDS: FAMOTIDINE 20 MG/2 ML VIAL IV PUSH (06:08)
[2024-07-06 06:56] VITALS: BP 156/84; PULSE 62; RESP 16; O2SAT 94
== END 2024-07-06 06:57 | disposition home or self-care (01) ==
PROVIDERS: Emergency Provider Emergency Medicine; PCP Family Medicine Adolescent Medicine
DX: R07.9 Chest pain, unspecified (principal); I10 Essential (primary) hypertension; Z96.653 Presence of artificial knee joint, bilateral; Z87.891 Personal history of nicotine dependence
CPT/HCPCS: 36415; 71275; 80053; 83690; 83735; 84484; 85025; 85610; 85730; 93005; 96374; 99284; Q9967

== ENCOUNTER 2025-02-12 08:30 | Outpatient (CLI) | payer MEDICARE, OTHER, SELFPAY ==
--- OUTSIDE RECORDS SUMMARY | 2018-07-29 04:00 | XMS_ITS | Continuity of Care Document ---
Author Organization [facility] Address [address] [place] [address] Phone Care Team Providers Care Welder Fitter Gas Name Role Phone Toby Moore Unavailable Unavailab le Allergies, Adverse Reactions, Alerts Substance Reaction Status Criticality No Known Allergies Active No Inform ation Medications Medication Instructions Dosage Effective Dates (start - stop) Status Comments atorvastatin 10 mg tablet - Active lisinopril 20 mg-hydrochlorothiazide 12.5 mg tablet - Active Procedures Procedure Date X-ray exam knee, 4+ views Office/outpatient visit,est, mod 2018 Advance Directives Directive Yes / No Effective Date File Name No Information Encounters Encounter Description Practice Location Reason(s) For Visit Diagnoses Date Provider Providers Copied on Encounter Office/outpat ient visit,est, mod [facility], [address] [place], [place] [address]uite [facility], [place], [place], [id number], [place] tel:[phone] [facility] Right knee. (chief complaint) Pain in right kneePresence of artificial knee joint, bilateralLipoma [address]. [address], [address], [place], [place], [id number] , [place]. tel:[phone] Family History Family Member Type Diagnosis Age At Onset No Information Payers Payer name Insurance type Covered constitution party ID Authoriza titiff(s) [facility] [id number] [place] [email or web address] Jin kumar [facility] [id number] Social History Type Description Quantity Date Captured Comments Alcohol Use Details Unknown Caffeine Use Details Unknown Tobacco Use Status No Information Smoking Status Former smoker Non-Smoking Tobacco Use Details : No Details Available : No Details Available Sex Male Vital Signs Date / Time: Height Weight BMI Pulse Rate Blood Pressure Temperature Respiratory Rate Body Surface Area Head Circumference Head Circ. Percentile Wt./Juan. Percentile BMI percentile Pulse Ox Inhaled Ox 10:23 AM 77.00 in 90.718 kg (200.00 lbs) 23.7 2 kg/m kristener (2) Chief Complaint And Reason For Visit From encounter dated '07/29/2018 09:00'. Right knee. (chief complaint). Description: Oli is a pleasant 62 year olde, 6' 5 tall, 200 pound, right hand dominant male who presents to the office today for evaluation of the mass located at the lateral aspect of his right knee. He is status post bilateral total knee arthroplasty, date of surgery 08/12/2015. He indicates that the mass has been at the lateral knee for a few weeks, increasing in nature, and starting to become painful, however, it is diminished in size this morning. He indicates that is will increase with ambulation. Denies trauma, injury, or fall. Denies fever, chills, unexplained weight loss or gain, generalized feelings of illness, or malaise. Denies reduction of range of motion of the bilateral knees, locking up, or catching. Indicates that the rightknee will make noise with movement, and that the bilateral knees are not as small as they were prior to surgical intervention. He is ambulating without assistive device at today's visit. Reason For Referral Reason For Referral No Information Plan Of Treatment Date Type Action Status Referral Ordered: X-ray exam knee, 4+ views RT ordered History Of Present Illness Encounter Date Complaint History Of Prese nt Illness Right knee. Oli is a pleasa nt 62 year olde, 6' 5 tall, 200 pound, right hand dominant male who presents to the office today for evaluation of the mass located at the lateral aspect of his right knee. He is status post bilateral total knee arthroplasty, date of surgery 08/12/2015. He indicates that the mass has been at the lateral knee for a few weeks, increasing in nature, and starting to become painful, however, it is diminished in size this morning. He indicates that is will increase with ambulation. Denies trauma, injury, or fall. Denies fever, chills, unexplained weight loss or gain, generalized feelings of illness, or malaise. Denies reduction of range of motion of the bilateral knees, locking up, or catching. Indicates that the right knee will make noise with movement, and that the bilateral knees are not as small as they were prior to surgical intervention. He is ambulating without assistive device at today's visit. 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 No suspicion of mechanical loosening, implant failure, or septic joint at this time. Patient was advised that the lipoma is not related to the prosthesis in the knee, and is not a mass on the bone. He was advised that it is a soft tissue mass in the dermal or epidermal layer, and if he is concerned about it he should follow up with his primary care physician for referral to general surgery for removal. Copies of the radiographic imaging from today's visit were given to the patient to demonstrate this. The patient may use ice or heat, rest, elevation, and over the counter pain medications or NSAID type medications for pain and inflammation in the right knee. He was advised that due to the surgical intervention and the implants that are present in the bilateral knees they will always appear different than a [place] knee, and that their appearance is normal. The patient demonstrates appropriate understanding of the diagnosis and the plan of care at this time, and we will see him back as needed Patient Care Teams Name Effective Dates (start - stop) Status Members No Information
--- OUTSIDE RECORDS SUMMARY | 2025-02-11 08:15 | XMS_ITS | Encounter Summary ---
Author Organization [facility] Healthcare Address [address] [place] [address] Care Team Providers Care Jewel Setter Name Role Phone Venkata Howard MD Primary Care Prov ider Reason for Visit * Reason Comments New Patient LLE VV * Consultation (Routine) - Authorized Specialty Diagnoses / Procedures Referred By Contac t Referred To Contact Vascular Surgery Diagnoses Varicose veins of left lower extremity, unspecified whether complicated Venkata Howard MD [address] [place] [address] Phone: tel: fax: Jey Odom MD [address] [place] [address] Phone: tel: fax: Referral ID Status Reason Start Date Expiration Date Visits Requested Visits Authorized [id number] Authorized Specialty Services Required 01/19/2025 02/18/2026 10 10 Encounter Details Date Type Department Care Team (Late st Contact Info) Description 02/11/2025 8:15 AM CDT Office Visit [facility] Vascular at [address] [place] [address] Jey Odom MD [address] [facility] [address] [place] [id number] Varicose veins of left calf (Primary Dx); Primary hypertension; Mixed hyperlipidemia Social History Tobacco Use Types Packs/Day Years Used Date Smoking Tobacco: Never Sex and Gender Information Value Date Recorded Sex Assigned at Not on file Legal Sex Male 7:37 PM [employer] Gender Identity Not on file Sexual Orientation Not on file documented as of this encounter Last Filed Vital Signs Vital Sign Reading Time Taken Comments Blood Pressure 176/94 02/11/2025 8:33 AM CDT Pulse 60 02/11/2025 8:33 AM CDT Temperature - - Respiratory Rate - - Oxygen Saturation 100% 02/11/2025 8:09 AM CDT Inhaled Oxygen Concentration - - Weight 90.7 kg (200 lb) 02/11/2025 8:09 AM CDT Height 193 cm (6' 4) 02/11/2025 8:09 AM CDT Body Mass Index 24.34 02/11/2025 8:09 AM CDT documented in this encounter Progress Notes * eJy Odom MD - 02/11/2025 8:15 AM CDT Images from the original note were not included. [facility] Patient ID: Oli Sellers is a 69 y.o. male Visit Date: 02/11/2025 Chief Complaint Chief Complaint Patient presents with New Patient LLE VV HPI Oli Sellers is a 69 y.o. male w/ a history of HTN, HLD seen in the office for evaluation of left lower extremity symptomatic varicosities. Has had large varicose veins to the left calf over the last 20-30 years, has been increasing in size. Gets discomfort after long periods of standing despiteuse of compression therapy. He is very active gentleman in his also concerned about bleeding from these varicose veins. Antiplatelets/Anticoagulants (and reason): - none Previous vascular surgery interventions, including date (surgery, angio,etc): - none Current Outpatient Medications: atorvastatin (LIPITOR) 40 mg tablet, Take 1 tablet (40 mg total) by mouth daily, Disp: , Rfl: diclofenac DR (VOLTAREN) 75 mg EC tablet, Take 1 tablet (75 mg total) by mouth 2 (two) times a day,Disp: , Rfl: finasteride (PROSCAR) 5 mg tablet, , Disp: , Rfl: ipratropium (ATROVENT) 42 mcg (0.06 %) nasal spray, , Disp: , Rfl: lisinopril-hydroCHLOROthiazide (ZESTORETIC) 20-12.5 mg per tablet, , Disp: , Rfl: metoprolol XL (TOPROL-XL) 50 mg extended release tablet, Take 50 mg by mouth daily, Disp: , Rfl: pantoprazole DR (PROTONIX) 40 mg EC tablet, Take 40 mg by mouth 2 (two) times a day, Disp: , Rfl: traZODone (DESYREL) 50 mg tablet, TAKE 1 TAB ORALLY EVERY DAY AT BEDTIME NEEDED FOR INSOMNIA, Disp: , Rfl: atorvastatin (LIPITOR) 10 mg tablet, , Disp: , Rfl: diclofenac sodium (VOLTAREN) 1 % gel, APPLY TOPICALLY TO THE AFFECTED AREA ON THE LEFT HAND 3 TO 4 TIMES DAILY. (Patient not taking: Reported on 02/11/2025), Disp: , Rfl: Past Medical History: Diagnosis Date Arthritis Hypertension Past Surgical History: Procedure Laterality Date CARPAL TUNNEL RELEASE KNEE SURGERY Family History Problem Relation Age of Onset Hypertension Father Social History Tobacco Use Smoking status: Never Smokeless tobacco: None Substance and Sexual Activity Drug use: Never Sexual activity: None Alcohol Use: Not on file ROS Constitutional: No change in appetite. No recent weight loss. No fevers chills or sweats. HEENT: No trouble swallowing. No tinnitus. Eyes: No visual disturbances Respiratory: No shortness of breath. No cough or sputum production. No wheezing. Cardiovascular: No chest pain. No palpitations. Gastrointestinal: No abdominal pain. No nausea vomiting or diarrhea. Genitourinary: No dysuria. No hematuria. Extremities: No claudication. No rest pain. No lower extremity ulcerations or infections. No significant edema. Musculoskeletal: No joint pains. No back pain. Neurologic: No dizziness. No syncope. No weakness. Skin: No rashes. No discoloration. Hematologic: no bleeding Psychiatric: no anxiety, no behavioral changes, no mood swings PE Constitutional: Alert and oriented HEENT: Head atraumatic and normocephalic Neck is supple No carotid bruits Extraocular movements full, sclerae anicteric Chest: Effort normal. Breath sounds normal. Cardiovascular: S1 and S2 are normal. No murmurs rubs or gallops appreciated. Abdominal: Soft, nontender, no masses. Extremities/Vascular: Large bulky varicosities of the left calf Musculoskeletal: Normal range of motion. Neurologic: Cranial nerves 2-12 intact. Strength and sensation intact bilaterally. Skin: Warm and dry. No rashes. No discoloration. Psychiatric: Normal mood and affect. Behavior normal. Judgment normal. IMAGING STUDIES Diagnoses and all orders for this visit: Varicose veins of left calf (Primary) Assessment & Plan: Left lower extremity CEAP C3 disease symptomatic varicosities. Reflux percussion instrument repairer ordered for further evaluation, pending this he may benefit from a GSV ablation and stab phlebectomies. Primary hypertension Assessment & Plan: Uncontrolled this morning. Continue lisinopril hydrochlorothiazide and metoprolol. Recommend followup with his PCP. Mixed hyperlipidemia Assessment & Plan: Stable continue Lipitor Other orders - Ambulatory referral to Vascular Surgery MD Jey Romo MD This note was generated in part or in whole with voice recognition software. Voice recognition is usually quite accurate but there are tax investigator errors that can and often occur. All attempts weremade to correct these errors. I apologize for any typographical errors that were not detected and corrected. documented in this encounter Miscellaneous Notes * Assessment & Plan Note - Jey Odom MD - 02/11/2025 8:34 AM CDTAssociated Problem(s): Primary hypertension Uncontrolled this morning. Continue lisinopril hydrochlorothiazide and metoprolol. Recommend followup with his PCP. * Assessment & Plan Note - Jey Odom MD - 02/11/2025 8:34 AM CDTAssociated Problem(s): Mixed hyperlipidemia Stable continue Lipitor * Assessment & Plan Note - Jey Odom MD - 02/11/2025 8:34 AM CDTAssociated Problem(s): Varicose veins of left calf Left lower extremity CEAP C3 disease symptomatic varicosities. Reflux percussion instrument repairer ordered for further evaluation, pending this he may benefit from a GSV ablation and stab phlebectomies. documented in this encounter Plan of Treatment Not on file documented as of this encounter Visit Diagnoses Diagnosis Varicose veins of left calf- Primary Primary hypertension Unspecified essential hypertension Mixed hyperlipidemia documented in this encounter Historical Medications * This list may reflect changes made after this encounter. diclofenac DR (VOLTAREN) 75 mg EC tablet Take 1 tablet (75 mg total) by mouth 2 (two) times a day atorvastatin (LIPITOR) 40 mg tablet Take 1 tablet (40 mg total) by mouth daily 12/08/2024 ipratropium (ATROVENT) 42 mcg (0.06 %) nasal spray 02/10/2025 traZODone (DESYREL) 50 mg tablet TAKE 1 TAB ORALLY EVERY DAY AT BEDTIME NEEDED FOR INSOMNIA 11/18/2024 added in this encounter Orders Outpatient Referral Count Last Ordered Date Fir st Ordered Date AMB REFERRAL TO VASCULAR SURGERY 1 02/12/20 documented in this encounter Care Teams Jewel Setter Relationship Specialty Start Date End Date Venkata Howard MD PCP - General Family Medicine 03/07/21 documented as of this encounter
--- NOTE | ~2025-02-12 | US_ITS ---
EXAMINATION: US carotid duplex BI DATE: 02/12/2025 09:31 INDICATION: Dizziness and giddiness. Disturbance of skin sensation. TECHNIQUE: Grayscale, color Doppler, and pulsed Doppler images of the cervical carotid arteries were obtained. The degree of vessel stenosis is placed in one of the following categories: normal, <50%, 50-69%, >=70% but less than near- occlusion, near-occlusion, or total occlusion. Note that percent stenosis relative to normal distal artery lumen diameter is indirectly measured from velocity measurements as described by Harry, et al. Radiology 2003; 229:340-346. COMPARISON: None. FINDINGS: Cardiac arrhythmia is present. RIGHT: The right common carotid artery (CCA) peak systolic velocity (PSV) is 76 cm/s. The right internal carotid artery (ICA) PSV is 133 cm/s. The right ICA end- diastolic velocity (EDV) is 41 cm/s. The right ICA/CCA PSV ratio is 1.7. Grayscale and color Doppler images yield an estimate of 50-69% diameter redu ction from plaque in the ICA. The external carotid artery (ECA) PSV is 122 cm/s. There is antegrade flow in the right vertebral artery. LEFT: The left CCA PSV is 86 cm/s. The left ICA PSV is 91 cm/s. The left ICA EDV is 31 cm/s. The left ICA/CCA PSV ratio is 1.1. Grayscale and color Doppler images yield an estimate of <50% diameter reduction from plaque in the ICA. The ECA PSV is 120 cm/s. There is antegrade flow in the left vertebral artery. IMPRESSION: 1. 50-69% stenosis in the right internal carotid artery. 2. <50% stenosis in the left internal carotid artery. 3. Cardiac arrhythmia is present. Correlate with EKG. Reviewed, dictated and finalized at location A.
--- OUTSIDE RECORDS SUMMARY | 2025-02-12 08:41 | XMS_ITS | Clinical Summary ---
Author Organization [facility] Address [address] [place] [address] Care Team Providers Care Loan Originator Name Role Phone Venkata Howard MD Primary [...] 50 mg by mouth daily 2 Active traZODone (DESYREL) 50 mg tablet TAKE 1 TAB ORALLY EVERY DAY AT BEDTIME NEEDED FOR INSOMNIA 5 Active ipratropium (ATROVENT) 42 mcg (0.06 %) nasal spray 5 Active atorvastatin (LIPITOR) 40 mg tablet Take 1 tablet (40 mg total) by mouth daily [address] (VOLTAREN) 75 mg EC tablet Take 1 tablet (75 mg total) by mouth 2 (two) times a day Active Active Problems Problem Noted Date Diagnosed Date Varicose veins of left calf 02/11/2025 Assessment & Plan (02/11/2025 8:34 AM CDT): Left lower extremity CEAP C3 disease symptomatic varicosities. Reflux building coordinator ordered for further evaluation, pending this he may benefit from a GSV ablation and stab phlebectomies. Primary hypertension 02/11/2025 Assessment & Plan (02/11/2025 8:34 AM CDT): Uncontrolled this morning. Continue lisinopril hydrochlorothiazide and metoprolol. Recommend follow up with his PCP. Mixed hyperlipidemia 02/11/2025 Assessment & Plan (02/11/2025 8:34 AM CDT): Stable continue Lipitor Knee pain 04/03/2014 Encounters Date Type Department Care Team Description 02/11/2025 8:15 AM CDT Office Visit [facility] Vascular at [address] [place] [address] Jey Odom MD Varicose veins of left calf (Primary Dx); Primary hypertension; Mixed hyperlipidemia 02/11/2025 Orders Only [facility] Vascular at [address] [place] [address] Jey Odom MD Varicose veins of lower extremity with pain, left (Primary Dx) from Last 3 Months Surgical History Surgery Date Site/Laterality Comments CARPAL TUNNEL RELEASE KNEE SURGERY Medical History Medical History Date Comments Arthritis Hypertension Family History Medical History Relation Name Comments Hypertension Father Relation Name Status Comments Father Social History Tobacco Use Types Packs/Day Years Used Date Smoking Tobacco: Never Sex and Gender Information Value Date Recorded Sex Assigned at Not on file Legal Sex Male 7:37 PM TREE [employer] Gender Identity Not on file Sexual Orientation [...] Mass Index 24.34 02/11/2025 8:09 AM CDT Plan of Treatment Health Maintenance Due Date Last Done Comments Colon Cancer Screening-Colonoscopy 1957 Depression Screening 1957 Fall Risk Assessment 1957 Hepatitis C Screening 1957 Prostate Cancer Screening-PSA 1957 DTaP/Tdap/Td Vaccine (1 - Tdap) 1968 Hepatitis B Screening 11/26/1975 Pneumococcal vaccine 65+ (1 of 1 - PCV) 11/26/2007 Zoster Vaccine (1 of 2) 11/26/2007 Well Visit 65+ 2022 Covid-19 Vaccine (2 - season) 01/12/202511/2020 Influenza Vaccine (#1) 2025 Insurance [facility] [employer] MEDICARE Care Teams Loan Originator Relationship Specialty Start Date End Date Venkata Howard MD PCP - General Family Medicine 03/07/21
--- OUTSIDE RECORDS SUMMARY | 2025-02-12 08:41 | XMS_ITS | Patient Health Record ---
Author Organization [facility] Address [address] [place], [place] [id number] Care Team Providers Care Compatibility Test Engineer Name Role Phone HerbertJUNIOR minaya Unavailable Venkata Howard Unavailable Unavailable Reason For Referral No Information Plan Of Treatment No Information Insurance Providers Payer Name Payer Address Payer Phone Subscriber Number Group Number Insured Name Patient Relationship to Insured Coverage Start Date Coverage End Date [facility] [address] [place] [phone] [id number] CHRISTINA CHOUDHARY Other [facility] ([facility] ATTN CLAIMS [address] [place] [address] [id number] PORTER CHOUDHARY Spouse - patient is the spouse of the insured
--- OUTSIDE RECORDS SUMMARY | 2025-02-12 08:41 | XMS_ITS | Encounter Summary ---
Author Organization [facility] Address [address] [place] [address] Care Team Providers Care Data Entry Technician Name Role Phone Venkata Howard MD Primary Care Prov ider Reason for Referral * Diagnostic Imaging (Routine) - Authorized Specialty Diagnoses / Procedures Referred By Contac t Referred To Contact Diagnoses Varicose veins of lower extremity with pain, left Procedures US Vein Duplex Reflux Left Jey Odom MD [address] [place] [address] [place] [id number] Phone: tel: fax: [facility] at [address] [address] Phone: tel: fax: Referral ID Status Reason Start Date Expiration Date V isits Requested Visits Authorized [id number] Authorized 02/11/2025 03/13/2026 1 1 Encounter Details Date Type Department Care Team (Late st Contact Info) Description 02/11/2025 Orders Only [facility] Vascular at [address] [id number] Jey Odom MD [address] [place] [address] [place] [phone] Varicose veins of lower extremity with pain, left (Primary Dx) Social History Tobacco Use Types Packs/Day Years Used Date Smoking Tobacco: Never Sex and Gender Information Value Date Recorded Sex Assigned at Not on file 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 Gender Identity Not on file Sexual Orientation Not on file documented as of this encounter Plan of Treatment Scheduled Orders Name Type Priority Associated Diagnoses Orde r Schedule US Vein Duplex Reflux Left Imaging Schedule Routine, Read Routine (OP Routine) Varicose veins of lower extremity with pain, left Expected: 02/25/2025, Expires: 08/12/2026 documented as of this encounter Visit Diagnoses Diagnosis Varicose veins of lower extremity with pain, left- Primary documented in this encounter Care Teams Data Entry Technician Relationship Specialty Start Date End Date Venkata Howard MD PCP - General Family Medicine 03/07/21 documented as of this encounter
--- OUTSIDE RECORDS SUMMARY | 2025-02-12 08:41 | XMS_ITS | Clinical Summary ---
Author Organization [facility] Address [facility] [place] [address] Care Team Providers Care Silk Screen Operator Name Role Phone Unavailable Primary Care Provider [...] Td Vaccines ( 1 - Tdap) 1976 Pneumococcal Vaccine: 50+ Ye ars (1 of 1 - PCV) 11/26/2007 Zoster Vaccines (1 of 2) 11/26/2007 COVID-19 Vaccine (1 - 2023-2 5 season) 2025 RSV Immunization or 60+ Years (1 - [...]
--- OUTSIDE RECORDS SUMMARY | 2025-02-12 08:41 | XMS_ITS | Encounter Summary ---
Author Organization [facility] Healthcare Address [address] [place] [address] Care Team Providers Care Pole Incisor Operator Name Role Phone Venkata Howard MD Primary Care Prov ider Encounter Details Date Type Department Care Team (Late st Contact Info) Description 07/06/2024 Orders Only [facility] [place] Health Information Management [address] [place] [id number] Scanning, Provider Social History Tobacco Use Types Packs/Day Years Used Date Smoking Tobacco: Never Sex and Gender Information Value Date Recorded Sex Assigned at Not on file 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 Gender Identity Not on file Sexual Orientation Not on file documented as of this encounter Plan of Treatment Not on file documented as of this encounter Procedures Procedure Name Priority Date/Time Associated Diagnosis Comments SCAN - RADIOLOGY/IMAGING 07/06/2024 documented in this encounter Results * SCAN - RADIOLOGY/IMAGING (07/06/2024) Anatomical Region Laterality Modality Other us Provider Scanning Final Result documented in this encounter Visit Diagnoses Not on filedocumented in this encounter Care Teams Pole Incisor Operator Relationship Specialty Start Date End Date Venkata Howard MD PCP - General Family Medicine 03/07/21 documented as of this encounter
== END 2025-02-12 08:31 | disposition home or self-care (01) ==
PROVIDERS: PCP Family Medicine Adolescent Medicine; Visit Provider Nurse Practitioner
DX: R42 Dizziness and giddiness (principal); I65.23 Occlusion and stenosis of bilateral carotid arteries; I49.9 Cardiac arrhythmia, unspecified
CPT/HCPCS: 93880

== ENCOUNTER 2025-04-06 11:58 | Outpatient (CLI) | payer MEDICARE, OTHER, SELFPAY ==
--- NOTE | ~2025-04-06 | XR_ITS ---
XR_[id number] Indication: M54.50 - Low back pain, unspecified Comparison: None Findings: Grade 1 retrolisthesis of C5 on C6 and C6 on C7, no fracture is identified. Severe loss of disc height at C5-6 and C6-7. Soft tissues unremarkable Impression: No acute abnormality. Reviewed, dictated and finalized at location P. BAILER Impression: No acute abnormality.
--- NOTE | ~2025-04-06 | XR_ITS ---
XR lumbar spine 2-3V Indication: M54.50 - Low back pain, unspecified Comparison: None Findings: Moderate loss of vertebral height throughout. Dextroconvex scoliosis. Grade 1 retrolisthesis of L2 on L3, no acute fracture. Severe loss of disc height throughout. Soft tissues unremarkable Impression: No acute abnormality. Reviewed, dictated and finalized at location P. NG MACHINE OPERATOR Impression: No acute abnormality.
== END 2025-04-06 11:59 | disposition home or self-care (01) ==
LOC: MICIMG 12:01
PROVIDERS: PCP Family Medicine Adolescent Medicine; Visit Provider Family Medicine Adolescent Medicine
DX: M54.50 Low back pain, unspecified (principal); M54.2 Cervicalgia
CPT/HCPCS: 72040; 72100